=== PATIENT | male | born 2000 | race Caucasian/White ===

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

== ENCOUNTER 2018-10-25 16:51 | Emergency (ER) | payer SELFPAY ==
[~2018-10-25] VITALS: Ht 175.3 cm; Wt 85.0 kg
[2018-10-25 16:53] VITALS: BP 135/65; PULSE 71; RESP 18; Ht 175.3 cm; Wt 85.0 kg
[2018-10-25] MEDS ORDERED: NAPR-985 PO (17:52)
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
== END 2018-10-25 18:48 | disposition home or self-care (01) ==
LOC: FTE 16:51
DX: M54.5 Low back pain (principal); Z87.891 Personal history of nicotine dependence
CPT/HCPCS: 99282